=== PATIENT | male | born 1940 | race Caucasian/White ===

== ENCOUNTER 2017-02-19 15:35 | Emergency (ER) | payer MEDICARE ==
[2017-02-19] MEDS ORDERED: NACL 0.9% 1000 ML 1,000 ML IV ONE (16:05)
[2017-02-19] MEDS ORDERED: MORPHINE IV ONE (16:48)
[2017-02-19] MEDS ORDERED: ZOFRAN IV ONE (16:48)
--- NOTE | 2017-02-19 16:52 | Emergency Department Report ---
HPI - General Chief Complaint: Urogenital-Male Time Seen by Provider: 02/19/17 16:36 - HPI HPI: Room 1 The patient is a 77-year-old male presenting with a chief complaint of suprapubic and penile pain/urinary retention. Patient states this morning he noticed hematuria and difficulty urinating. Patient complains of pain in the suprapubic region penis. Patient denies nausea vomiting or fever. The patient had a BM this morning and noticed blood on the tissue after wiping. Patient denies rectal pain. In the ED patient had a Stein catheter placed and states he feels better but still has pain at the penis and gives a score of 6/10 Location: Genitourinary system Duration: One day Quality: Pain Severity: 6/10 Modifying factors: [see above] Context: [see above] Mode of transportation: Unknown ED Past Medical Hx - Past Medical History Hx Hypertension: Yes Hx CVA: Yes Hx of Cancer: Yes (history of prostate CA status post xrt) Additional medical history: stroke- 2000. BPH - Surgical History Past Surgical History?: No - Family History Family history: no significant - Social History Smoking Status: Never Smoker Substance Use Type: None - Medications Home Medications: Home Medications Medication Instructions Recorded Confirmed Last Taken Type Aspirin [Aspirin TAB] 325 mg PO ONCE 05/25/13 05/25/13 Unknown History Ciprofloxacin 0.2%(Nf) 500 mg PO BID 05/25/13 05/25/13 Unknown History [Ciprofloxacin OTIC] Clopidogrel [Plavix] 75 mg PO QDAY 05/25/13 05/25/13 Unknown History Ibuprofen [Advil] 200 mg PO 05/25/13 05/25/13 Unknown History Lisinopril [Zestril] 10 mg PO QDAY 05/25/13 05/25/13 Unknown History [place]-3 Acid Ethyl Esters [Lovaza] 1 gm PO 05/25/13 05/25/13 Unknown History Simvastatin [Zocor] 80 mg PO QDAY 05/25/13 05/25/13 Unknown History Tramadol HCl/Acetaminophen 37.5 - 325 each PO BID PRN 05/25/13 05/25/13 Unknown History [Ultracet] HYDROcodone/APAP 5-325 [[place] 1 - 2 each PO Q6HR PRN #14 tablet 02/19/17 Unknown Rx 5/325] ED Review of Systems ROS: Stated complaint: UTI/UNABLE TO URINATE Other details as noted in HPI Comment: All other systems reviewed and negative Constitutional: denies: chills, fever Eyes: denies: eye pain, eye discharge, vision change ENT: denies: ear pain, throat pain Respiratory: denies: cough, shortness of breath, wheezing Cardiovascular: denies: chest pain, palpitations Endocrine: no symptoms reported Gastrointestinal: abdominal pain. denies: nausea, vomiting Genitourinary: hematuria Musculoskeletal: denies: back pain, joint swelling, arthralgia Skin: denies: rash, lesions Neurological: denies: headache, weakness, paresthesias Psychiatric: denies: anxiety, depression Hematological/Lymphatic: denies: easy bleeding, easy bruising Physical Exam - Physical Exam Vital Signs: Vital Signs 02/19/17 02/19/17 15:48 16:00 Temperature 98.3 F Pulse Rate 94 H Respiratory 20 16 Rate Blood Pressure 132/80 O2 Sat by Pulse 95 96 Oximetry Physical Exam: GENERAL: The patient is well-developed well-nourished male lying on stretcher not appearing to be in acute distress. [] HEENT: Normocephalic. Atraumatic. Extraocular motions are intact. Patient has moist mucous membranes. NECK: Supple. Trachea midline CHEST/LUNGS: Clear to auscultation. There is no respiratory distress noted. HEART/CARDIOVASCULAR: Regular. There is no tachycardia. There is no gallop rub or murmur. ABDOMEN: Abdomen is soft, nontender. Patient has normal bowel sounds. There is no abdominal distention. SKIN: There is no rash. There is no edema. There is no diaphoresis. NEURO: The patient is awake, alert, and oriented. The patient is cooperative. The patient has normal speech MUSCULOSKELETAL: There is no evidence of acute injury. RECTAL: ED Course Vital Signs 02/19/17 02/19/17 15:48 16:00 Temperature 98.3 F Pulse Rate 94 H Respiratory 20 16 Rate Blood Pressure 132/80 O2 Sat by Pulse 95 96 Oximetry - Reevaluation(s) Reevaluation #1: 02/19/17 18:23 Patient continues to rest comfortably. Urine is clearing in the Stein catheter. ED Medical Decision Making - Lab Data Result diagrams: 02/19/17 16:31 02/19/17 16:31 Laboratory Tests 02/19/17 02/19/17 02/19/17 16:11 16:31 16:31 WBC 11.6 H RBC 4.59 Hgb 14.5 Hct 42.1 MCV 92 MCH 32 MCHC 34 RDW 13.0 L Plt Count 280 Seg Neutrophils % Manager Payment PT 13.9 INR 1.02 APTT 29.6 Sodium Potassium Chloride Carbon Dioxide Anion Gap BUN Creatinine Estimated GFR BUN/Creatinine Ratio Glucose Calcium Total Bilirubin AST ALT Alkaline Phosphatase Total Protein Albumin Albumin/Globulin Ratio Lipase Urine Color Red Urine Turbidity Cloudy Urine pH 6.0 Ur Specific [place] 1.024 Urine Protein 100 mg/dl Urine Glucose (UA) 50 Urine Ketones 20 Urine Blood Lg Urine Nitrite Neg Urine Bilirubin Neg Urine Urobilinogen < 2.0 Ur Leukocyte Esterase Neg Urine WBC (Auto) < 1.0 Urine RBC (Auto) > 182.0 Blood Type Antibody Screen [place] Antibody Screen 02/19/17 02/19/17 16:31 16:32 WBC RBC Hgb Hct MCV MCH MCHC RDW Plt Count Seg Neutrophils % PT INR APTT Sodium 135 L Potassium 4.4 Chloride 97.5 L Carbon Dioxide 21 L Anion Gap 21 BUN 15 Creatinine 0.8 Estimated GFR > 60 BUN/Creatinine Ratio 18.75 Glucose 130 H Calcium 8.7 Total Bilirubin 0.40 AST 30 ALT 22 Alkaline Phosphatase 52 Total Protein 6.8 Albumin 4.1 Albumin/Globulin Ratio 1.5 Lipase 30 Urine Color Urine Turbidity Urine pH Ur Specific [place] Urine Protein Urine Glucose (UA) Urine Ketones Urine Blood Urine Nitrite Urine Bilirubin Urine Urobilinogen Ur Leukocyte Esterase Urine WBC (Auto) Urine RBC (Auto) Blood Type B POSITIVE Antibody Screen TNR [place] Antibody Screen Negative - EKG Data -: EKG Interpreted by Fl EKG shows normal: sinus rhythm Rate: normal - EKG Data When compared to previous EKG there are: previous EKG unavailable Interpretation: other (no ischemic changes) - Radiology Data Radiology results: report reviewed (CT abdomen and pelvis), image reviewed (CT abdomen and pelvis) CT abdomen and pelvis (read by radiologist)-there is hyperdensity in the inferior aspect of the bladder. This may represent blood clot given the history provided. Underlying neoplastic process is not excluded. This can be further assess with cystoscopy. There is a hypodense focus in the right lobe of liver which is too small to definitely characterize. - Differential Diagnosis UTI, urinary retention, bladder mass, prostate CA Critical care attestation.: If time is entered above; I have spent that time in minutes in the direct care of this critically ill patient, excluding procedure time. ED Disposition Clinical Impression: Hematuria, Urinary retention Disposition: TO HOME OR SELFCARE Is pt being admited?: No Does the pt Need Aspirin: No Condition: Stable Instructions: Acute Hematuria (ED), Urinary Retention in Men (ED) Additional Instructions: Continue to take your antibiotics. Return to the emergency department should your abdominal pain return or your Stein catheter ceases draining urine. Return to the emergency department immediately should you develop worsening symptoms, fever, inability to tolerate food or liquid or any other concerns. Prescriptions: HYDROcodone/APAP 5-325 [[place] 5/325] 1 - 2 each PO Q6HR PRN #14 tablet PRN Reason: Pain Referrals: JANY ORTEGA MD [Referring] - SAMMI (Please follow up with your urologist as soon as possible) Time of Disposition: 18:26
[2017-02-19 16:55] LABS: Bilirubin,Urine NEG (Negative); Blood,Urine LG (Negative); Ketones,Urine 20 mg/dL (Negative); Leukocyte Esterase,Urine NEG (Negative); Nitrite,Urine NEG (Negative); Urobilinogen,Urine < 2.0 mg/dL (<2.0)
[2017-02-19 16:56] LABS: Hematocrit 42.1 % (35.5-45.6); Hemoglobin 14.5 gm/dl (11.8-15.2); Mean Corpuscular HGB Conc 34 % (32-34); Mean Corpuscular Hemoglobin 32 pg (28-32); Mean Corpuscular Volume 92 fl (84-94); Platelet Count 280 K/mm3 (140-440); Red Blood Count 4.59 M/mm3 (3.65-5.03); White Blood Count 11.6 K/mm3 (4.5-11.0)
[2017-02-19 16:56] LABS: RBC,Urine > 182.0 /HPF (0.0-6.0)
[2017-02-19 16:58] LABS: WBC,Urine < 1.0 /HPF (0.0-6.0)
[2017-02-19 17:16] LABS: Alanine Aminotransferase 22 units/L (7-56); Albumin 4.1 g/dL (3.9-5); Albumin/Globulin Ratio 1.5 %; Alkaline Phosphatase 52 units/L (35-129); Anion Gap 21 mmol/L; BUN/Creatinine Ratio 18.75; Blood Urea Nitrogen 15 mg/dL (9-20); Calcium 8.7 mg/dL (8.4-10.2); Carbon Dioxide 21 mmol/L (22-30); Chloride 97.5 mmol/L (98-107); Glucose 130 mg/dL (75-100); Lipase 30 units/L (13-60); Potassium 4.4 mmol/L (3.6-5.0); Sodium 135 mmol/L (137-145); Total Protein 6.8 g/dL (6.3-8.2)
[2017-02-19 17:21] LABS: INR 1.02 (0.87-1.13)
[2017-02-19 17:22] LABS: Partial Thromboplastin Time 29.6 Sec. (24.2-36.6)
--- NOTE | 2017-02-19 17:46 | Cat Scan Report ---
FINAL REPORT EXAM: CT ABDOMEN PELVIS WO CON HISTORY: urinary retention, amos hematuria TECHNIQUE: Serial axial images through the abdomen and pelvis with coronal and sagittal reconstruction. PRIORS: None. FINDINGS: There is atelectasis in the dependent portion of the lung bases. No pleural effusion is seen. There are calcified lymph nodes in the right hilar region. There is a hypodense focus in the right lobe of the liver which is too small to definitely characterize. Gallbladder appears normal. Pancreas appears normal. Spleen appears normal. Adrenal glands appear normal. Kidneys appear normal. Atherosclerotic changes are noted in the aorta. No aneurysmal dilatation is seen. The bladder is decompressed by Stein catheter. There is hyperdensity in the inferior aspect of the bladder. Sequelae from brachytherapy are seen in the prostate gland. No free fluid. No gross bowel abnormality is identified. There are degenerative changes in the spine. IMPRESSION: 1. There is hyperdensity in inferior aspect of the bladder. This may represent blood clot given the history provided. Underlying neoplastic process is not excluded. This can be further assessed with cystoscopy. 2. There is a hypodense focus in the right lobe of the liver which is too small to definitely characterize.
[2017-02-19 18:48] LABS: Basophils % (Manual) 0 % (0.0-1.8); Blastocytes % (Manual) 0 %; Eosinophils % (Manual) 0 % (0.0-4.3)
[2017-02-19 18:49] LABS: Diff Status Complete; Platelet Estimate Consistent w Auto; RBC Morphology Normal
[2017-02-19 20:05] VITALS: BP 107/67
== END 2017-02-19 19:50 | disposition home or self-care (01) ==
LOC: ED 15:35
DX: R33.8 Other retention of urine (principal); R31.9 Hematuria, unspecified; Z86.73 Personal history of transient ischemic attack (TIA), and cerebral infarction without residual deficits; I10 Essential (primary) hypertension; C61 Malignant neoplasm of prostate
CPT/HCPCS: 36415; 51702; 74176; 80053; 81001; 82271; 83690; 85007; 85025; 85610; 85730; 86850; 86900; 86901; 93005; 93010; 96361; 96374; 96375; 99284; J2270; J2405; J7030

== ENCOUNTER 2017-03-06 14:30 | Emergency (ER) | payer MEDICARE ==
[2017-03-06 15:40] LABS: Bilirubin,Urine NEG (Negative); Blood,Urine LG (Negative); Ketones,Urine NEG (Negative); Leukocyte Esterase,Urine NEG (Negative); Nitrite,Urine NEG (Negative); Urobilinogen,Urine < 2.0 mg/dL (<2.0)
[2017-03-06 15:41] LABS: RBC,Urine > 182.0 /HPF (0.0-6.0)
--- NOTE | 2017-03-06 15:42 | Cat Scan Report ---
CT scan of abdomen and pelvis without IV contrast: History: Lower abdominal pain. Findings: Normal lung bases. No pleural pericardial effusion. Normal liver gallbladder spleen and pancreas. Normal adrenals kidney parenchyma. The urinary bladder with catheterization. There is ill-defined areas of increased attenuation within the bladder which may be blood clots or tumor. Surgical clips at prostate. No free intraperitoneal fluid. Gaseous colon with large volume stool in colon. No bowel distention or wall thickening. 2 cm calcified lesion identified in the retroperitoneum right pelvic inlet without interval change. Impression: Blood clots or tumor in the bladder. Additional findings as detailed above
[2017-03-06 15:47] LABS: Hematocrit 36.6 % (35.5-45.6); Mean Corpuscular HGB Conc 33 % (32-34); Mean Corpuscular Hemoglobin 31 pg (28-32); Mean Corpuscular Volume 93 fl (84-94); Platelet Count 407 K/mm3 (140-440); Red Blood Count 3.92 M/mm3 (3.65-5.03); Red Cell Distribution Width 13.3 % (13.2-15.2); White Blood Count 9.7 K/mm3 (4.5-11.0)
[2017-03-06 15:58] LABS: Anion Gap 17 mmol/L; Blood Urea Nitrogen 11 mg/dL (9-20); Calcium 8.5 mg/dL (8.4-10.2); Carbon Dioxide 26 mmol/L (22-30); Chloride 100.7 mmol/L (98-107); Glucose 145 mg/dL (75-100); Potassium 4.1 mmol/L (3.6-5.0); Sodium 140 mmol/L (137-145)
--- NOTE | 2017-03-06 17:09 | Emergency Department Report ---
ED General Adult HPI - General Chief complaint: Urogenital-Male Stated complaint: BLADDER ISSUES Time Seen by Provider: 03/06/17 15:17 Source: family, EMS (ems notes not available at time of chart dictation), RN notes reviewed, old records reviewed Mode of arrival: Stretcher Limitations: Language Barrier - History of Present Illness Initial comments: This is a 77-year-old male. He is previously unknown to me. He presents to the ER with urinary retention. As per his daughter, the patient followed up with his outpatient urologist, Dr. Murrieta ([facility] [place] [address] Toll-free: [phone]) And she reports that she was instructed to discontinue the patient's Stein catheter today. The patient's daughter indicates that she discontinue the patient's Stein catheter today, and that he then began to have urinary retention. The patient started declines a director account management, and requests translate for the patient. At my verbal instruction, laboratory studies, noncontrast CT scan of the abdomen and pelvis, and Stein catheter replaced. Laboratory studies were essentially unremarkable, urinalysis suggested possible urinary tract infection, and a noncontrast CT scan demonstrated blood or clots or tumor in the bladder. The patient's daughter indicated the patient's pain was resolved after placement of a Steni catheter. I also discussed the case with the covering urologist for the patient's primary urologist, Dr. Mercado, and he indicated the patient should be discharged with a leg bag, and the patient should contact the office to arrange follow-up. This was relayed to the daughter. She verbalized understanding. -: Gradual Location: abdomen Consistency: now resolved Improves with: other (placement of a Stein catheter) Worsens with: other (removal of Stein catheter) Associated Symptoms: denies: chest pain, cough, diaphoresis, fever/chills, headaches, loss of appetite, malaise, nausea/vomiting, shortness of breath, syncope, weakness - Related Data Home Medications Medication Instructions Recorded Confirmed Last Taken Clopidogrel [Plavix] 75 mg PO QDAY 05/25/13 02/19/17 Unknown Lisinopril [Zestril] 10 mg PO QDAY 05/25/13 02/19/17 Unknown Tramadol HCl/Acetaminophen 37.5 - 325 each PO Q6H PRN 05/25/13 02/19/17 Unknown [Ultracet] AtorvaSTATin [Lipitor] 40 mg PO QHS 02/19/17 02/19/17 Unknown Ciprofloxacin HCl [Ciprofloxacin 500 mg PO Q12H 02/19/17 02/19/17 Unknown TAB] [place]-3 Acid Ethyl Esters [Lovaza] 4 cap PO QDAY 02/19/17 02/19/17 Unknown Phenazopyridine [Pyridium] 200 mg PO TID 02/19/17 02/19/17 Unknown Triamcinolone 0.1% 1 gram TRANSDERMA BID 02/19/17 02/19/17 Unknown Previous Rx's Medication Instructions Recorded Last Taken Type HYDROcodone/APAP 5-325 [[place] 1 - 2 each PO Q6HR PRN #14 tablet 02/19/17 Unknown Rx 5/325] Nitrofurantoin Andrews/M-Cryst 100 mg PO Q12HR #14 capsule 03/06/17 Unknown Rx [Macrobid CAP] Allergies Allergy/AdvReac Type Severity Reaction Status Date / Time No Known Allergies Allergy Unverified 05/25/13 10:06 ED Review of Systems ROS: Stated complaint: BLADDER ISSUES Other details as noted in HPI Constitutional: denies: fever Eyes: denies: vision change ENT: denies: epistaxis Respiratory: denies: cough Cardiovascular: denies: chest pain Genitourinary: as per HPI. denies: testicular pain Musculoskeletal: denies: back pain Skin: denies: lesions Neurological: denies: weakness Psychiatric: as per HPI ED Past Medical Hx - Past Medical History Previous Medical History?: Yes Hx Hypertension: Yes Hx CVA: Yes Additional medical history: stroke- 2000. BPH - Social History Smoking Status: Former Smoker Substance Use Type: None - Medications Home Medications: Home Medications Medication Instructions Recorded Confirmed Last Taken Type Clopidogrel [Plavix] 75 mg PO QDAY 05/25/13 02/19/17 Unknown History Lisinopril [Zestril] 10 mg PO QDAY 05/25/13 02/19/17 Unknown History Tramadol HCl/Acetaminophen 37.5 - 325 each PO Q6H PRN 05/25/13 02/19/17 Unknown History [Ultracet] AtorvaSTATin [Lipitor] 40 mg PO QHS 02/19/17 02/19/17 Unknown History Ciprofloxacin HCl [Ciprofloxacin 500 mg PO Q12H 02/19/17 02/19/17 Unknown History TAB] HYDROcodone/APAP 5-325 [[place] 1 - 2 each PO Q6HR PRN #14 tablet 02/19/17 Unknown Rx 5/325] [place]-3 Acid Ethyl Esters [Lovaza] 4 cap PO QDAY 02/19/17 02/19/17 Unknown History Phenazopyridine [Pyridium] 200 mg PO TID 02/19/17 02/19/17 Unknown History Triamcinolone 0.1% 1 gram TRANSDERMA BID 02/19/17 02/19/17 Unknown History Nitrofurantoin Andrews/M-Cryst 100 mg PO Q12HR #14 capsule 03/06/17 Unknown Rx [Macrobid CAP] ED Physical Exam - General Limitations: Language Barrier General appearance: alert, in no apparent distress - Head Head exam: Present: atraumatic, normocephalic - Eye Eye exam: Present: normal appearance - ENT ENT exam: Present: normal orophraynx, mucous membranes moist - Neck Neck exam: Present: normal inspection, full ROM. Absent: tenderness, meningismus - Respiratory Respiratory exam: Present: normal lung sounds bilaterally. Absent: respiratory distress, wheezes, rales, rhonchi, stridor, chest wall tenderness, accessory muscle use, decreased breath sounds, prolonged expiratory - Cardiovascular Cardiovascular Exam: Present: regular rate, normal rhythm, normal heart sounds. Absent: bradycardia, tachycardia, irregular rhythm, systolic murmur, diastolic murmur, rubs, gallop - GI/Abdominal GI/Abdominal exam: Present: soft, normal bowel sounds. Absent: distended, tenderness, guarding, rebound, rigid, pulsatile mass - Rectal Rectal exam: Present: deferred - exam: Present: normal inspection External exam: Present: normal external exam, other (there is a Stein catheter in place draining clear/bloody urine.) - Extremities Exam Extremities exam: Present: pedal edema - Back Exam Back exam: Present: normal inspection, full ROM. Absent: tenderness, CVA tenderness (R), CVA tenderness (L), muscle spasm, paraspinal tenderness, vertebral tenderness - Neurological Exam Neurological exam: Present: alert, other (Extraocular movements intact. Tongue midline. No facial droop. Facial sensation intact to light touch in the V1, V2 , V3 distribution bilaterally. 5 and 5 strength in 4 extremities.. Sensation is intact to light touch in 4 extremities.) - Psychiatric Psychiatric exam: Present: normal affect, normal mood - Skin Skin exam: Present: warm, dry, intact, normal color. Absent: rash ED Course Vital Signs 03/06/17 03/06/17 03/06/17 14:41 14:47 15:00 Temperature 99.3 F Pulse Rate 95 H Respiratory 20 Rate Blood Pressure 128/71 141/71 128/71 Blood Pressure [Left] O2 Sat by Pulse 96 96 96 Oximetry 03/06/17 03/06/17 03/06/17 15:31 15:51 16:00 Temperature Pulse Rate Respiratory Rate Blood Pressure 118/63 118/63 117/59 Blood Pressure [Left] O2 Sat by Pulse 97 96 96 Oximetry 03/06/17 03/06/17 03/06/17 16:01 16:11 16:21 Temperature Pulse Rate Respiratory 18 Rate Blood Pressure 117/59 117/59 Blood Pressure [Left] O2 Sat by Pulse 97 97 97 Oximetry 03/06/17 03/06/17 03/06/17 16:31 16:41 16:51 Temperature Pulse Rate Respiratory Rate Blood Pressure 118/63 118/63 118/63 Blood Pressure [Left] O2 Sat by Pulse 95 94 95 Oximetry 03/06/17 03/06/17 03/06/17 17:00 17:11 17:21 Temperature Pulse Rate Respiratory Rate Blood Pressure 137/62 137/62 137/62 Blood Pressure [Left] O2 Sat by Pulse 96 96 98 Oximetry 03/06/17 03/06/17 03/06/17 17:31 17:48 18:37 Temperature Pulse Rate 90 Respiratory 18 18 Rate Blood Pressure 117/59 Blood Pressure 130/69 [Left] O2 Sat by Pulse 98 98 Oximetry ED Medical Decision Making - Lab Data Result diagrams: 03/06/17 15:26 03/06/17 15:26 Vital Signs 03/06/17 03/06/17 03/06/17 14:41 14:47 15:00 Temperature 99.3 F Pulse Rate 95 H Respiratory 20 Rate Blood Pressure 128/71 141/71 128/71 Blood Pressure [Left] O2 Sat by Pulse 96 96 96 Oximetry 03/06/17 03/06/17 03/06/17 15:31 15:51 16:00 Temperature Pulse Rate Respiratory Rate Blood Pressure 118/63 118/63 117/59 Blood Pressure [Left] O2 Sat by Pulse 97 96 96 Oximetry 03/06/17 03/06/17 03/06/17 16:01 16:11 16:21 Temperature Pulse Rate Respiratory 18 Rate Blood Pressure 117/59 117/59 Blood Pressure [Left] O2 Sat by Pulse 97 97 97 Oximetry 03/06/17 03/06/17 03/06/17 16:31 16:41 16:51 Temperature Pulse Rate Respiratory Rate Blood Pressure 118/63 118/63 118/63 Blood Pressure [Left] O2 Sat by Pulse 95 94 95 Oximetry 03/06/17 03/06/17 03/06/17 17:00 17:11 17:21 Temperature Pulse Rate Respiratory Rate Blood Pressure 137/62 137/62 137/62 Blood Pressure [Left] O2 Sat by Pulse 96 96 98 Oximetry 03/06/17 03/06/17 03/06/17 17:31 17:48 18:37 Temperature Pulse Rate 90 Respiratory 18 18 Rate Blood Pressure 117/59 Blood Pressure 130/69 [Left] O2 Sat by Pulse 98 98 Oximetry Lab Results 03/06/17 03/06/17 03/06/17 Range/Units 15:10 15:26 15:26 WBC 9.7 (4.5-11.0) K/mm3 RBC 3.92 (3.65-5.03) M/mm3 Hgb 12.0 (11.8-15.2) gm/dl Hct 36.6 (35.5-45.6) % MCV 93 (84-94) fl MCH 31 (28-32) pg MCHC 33 (32-34) % RDW 13.3 (13.2-15.2) % Plt Count 407 (140-440) K/mm3 Sodium 140 (137-145) mmol/L Potassium 4.1 (3.6-5.0) mmol/L Chloride 100.7 (98-107) mmol/L Carbon Dioxide 26 (22-30) mmol/L Anion Gap 17 mmol/L BUN 11 (9-20) mg/dL Creatinine 1.0 (0.8-1.5) mg/dL Estimated GFR > 60 ml/min BUN/Creatinine Ratio 11.00 % Glucose 145 H (75-100) mg/dL Calcium 8.5 (8.4-10.2) mg/dL Urine Color Red (Yellow) Urine Turbidity Cloudy (Clear) Urine pH 6.0 (5.0-7.0) Ur Specific [place] 1.006 (1.003-1.030) Urine Protein 100 mg/dl (Negative) mg/dL Urine Glucose (UA) 50 (Negative) mg/dL Urine Ketones Neg (Negative) mg/dL Urine Blood Lg (Negative) Urine Nitrite Neg (Negative) Urine Bilirubin Neg (Negative) Urine Urobilinogen < 2.0 (<2.0) mg/dL Ur Leukocyte Esterase Neg (Negative) Urine WBC (Auto) 126.0 H (0.0-6.0) /HPF Urine RBC (Auto) > 182.0 (0.0-6.0) /HPF - Radiology Data Radiology results: report reviewed, image reviewed - Medical Decision Making Differential diagnosis: Urinary retention, cancer, tumor, malignancy, urinary tract infection CT scan findings are reviewed with daughter, she understands the importance of following up as an outpatient for the possibility of cancer/tumor/malignancy. Critical care attestation.: If time is entered above; I have spent that time in minutes in the direct care of this critically ill patient, excluding procedure time. ED Disposition Clinical Impression: Urinary retention Disposition: DC-01 TO HOME OR SELFCARE Is pt being admited?: No Does the pt Need Aspirin: No Condition: Stable Instructions: Urinary Retention in Men (ED), Urinary Leg Bag (GEN) Additional Instructions: Continue current outpatient medications. Cultures were sent today, results will be available in the next 3-5 days. Please have a primary care doctor or urology specialist contact the medical records department to obtain culture results. Return to the ER right away with new pain, worsened pain, migration of pain, fevers, chills, confusion, intractable nausea or vomiting, inability to tolerate liquid feeds. The leg bag stay in place until cleared to discharge by your urology specialist Contact your urologist first thing in the morning to arrange outpatient follow- up within the next 3-5 days. [facility] [place] [address] [facility] [address] [place] [address] Toll-free: [phone] scans suggested cancer/tumor/malignancy in the bladder. Therefore, it is very important to follow-up with your outpatient urology specialist as directed. Prescriptions: Nitrofurantoin [place]/M-Cryst [Macrobid CAP] 100 mg PO Q12HR #14 capsule Referrals: PRIMARY CARE, [Primary Care Provider] - 3-5 Days JANY MURRIETA MD [Referring] - 3-5 Days
[2017-03-06] MEDS ORDERED: TYLENOL PO ONE (17:45)
[2017-03-06 18:38] VITALS: BP 130/69
== END 2017-03-06 19:00 | disposition home or self-care (01) ==
LOC: ED 14:30
DX: R33.9 Retention of urine, unspecified (principal); I10 Essential (primary) hypertension; Z86.73 Personal history of transient ischemic attack (TIA), and cerebral infarction without residual deficits; Z87.891 Personal history of nicotine dependence; N40.0 Benign prostatic hyperplasia without lower urinary tract symptoms
CPT/HCPCS: 36415; 51702; 74176; 80048; 81001; 85027; 87086

== ENCOUNTER 2019-07-20 12:15 | Emergency (ER) | payer MEDICARE ==
--- NOTE | 2019-07-20 12:25 | Event Note ---
ED Screening Note ED Screening Note: two days ago fell while getting out of the bed +ZAYAS periorbital ecchymosis no LOC pt is on plavix This initial assessment/diagnostic orders/clinical plan/treatment(s) is/are subject to change based on patients health status, clinical progression and re- assessment by fellow clinical providers in the ED. Further treatment and workup at subsequent clinical providers discretion. Patient/guardian urged not to elope from the ED as their condition may be serious if not clinically assessed and managed. Initial orders include: CT head, CT facial bones, CT cervical
--- NOTE | 2019-07-20 13:32 | Cat Scan Report ---
CT HEAD WITHOUT CONTRAST INDICATION / CLINICAL INFORMATION: Trauma. Patient fell sustaining head and facial injury. Bilateral periorbital ecchymosis. TECHNIQUE: All CT scans at this location are performed using CT dose reduction for ALARA by means of automated e xposure control. COMPARISON: None available. FINDINGS: HEMORRHAGE: No evidence of intracranial hemorrhage or extra-axial fluid collection. EXTRA-AXIAL SPACES: Focal dilatation of cortical sulci and left sylvian fissure is noted secondary to involutional change related to remote left MCA infarction. Elsewhere the cortical sulci and sylvian fissures are enlarged reflecting a degree of parenchymal volume loss which is within normal limits fo r the patient's age. Basilar cisterns have an unremarkable appearance. VENTRICULAR SYSTEM: There is ex vacuo dilatation of the left lateral ventricle secondary to remote, l arge left MCA infarction. Otherwise, the third and lateral ventricles are enlarged reflecting resonan ce of age related parenchymal volume loss. CEREBRAL PARENCHYMA: Periventricular and deep white matter lucency is observed. This is probably seco ndary to microvascular ischemic change. There is no indication of recent infarction. A large area of encephalomalacia is present involving portions of the left frontal operculum, left parietal operculum and left insula and subinsular regions secondary to remote left MCA infarction. MIDLINE SHIFT OR HERNIATION: There is no mass effect. CEREBELLUM / BRAINSTEM: Brainstem and cerebellum have an unremarkable appearance. INTRACRANIAL VESSELS:Calcified atherosclerotic plaque is present along the course of the cavernous se gments of both internal carotid arteries. Similar findings are seen at the distal vertebral arteries. ORBITS: visualized portions of the orbits have an unremarkable appearance. SOFT TISSUES of HEAD: No significant abnormality. CALVARIUM: Evaluation of bone windows reveals no abnormalities. PARANASAL SINUSES / MASTOID AIR CELLS: Paranasal sinuses are free from inflammatory mucosal disease. Mastoid air cells are normally pneumatized. IMPRESSION: 1. Remote left MCA infarction as described in detail above. 2. No acute intracranial abnormality. Signer Name: Adonis Miles MD Signed: 07/20/2019 1:28 PM Workstation Name: [id number]
--- NOTE | 2019-07-20 13:37 | Cat Scan Report ---
CT MAXILLOFACIAL WITHOUT CONTRAST INDICATION / CLINICAL INFORMATION: Trauma. Patient fell sustaining head and facial injuries. Bilateral preseptal orbital ecchymoses. TECHNIQUE: All CT scans at this location are performed using CT dose reduction for ALARA by means of automated e xposure control. COMPARISON: None available. FINDINGS: FACIAL BONES: No fracture or other significant abnormality. PARANASAL SINUSES: No significant abnormality. NASAL CAVITY: No abnormality ORBITS: No significant abnormality. TEMPORAL BONES: Mild thickening of the tympanic membranes versus cerumen impaction adjacent to the ty mpanic membranes is incidentally noted. Correlation with otoscopic evaluation is suggested. Mastoid a ir cells and middle ear cavities appear to be free from inflammatory disease. VISUALIZED INTRACRANIAL STRUCTURES: No significant abnormality. IMPRESSION: 1. No indication of fracture or traumatic subluxation. Signer Name: Adonis Miles MD Signed: 07/20/2019 1:33 PM Workstation Name: [id number]
--- NOTE | 2019-07-20 13:41 | Cat Scan Report ---
CT CERVICAL SPINE WITHOUT CONTRAST INDICATION / CLINICAL INFORMATION: Trauma. Patient fell sustaining head and neck injury. Neck pain. TECHNIQUE: Axial CT images were obtained through the cervical spine. Sagittal and coronal reformatted images wer e produced. All CT scans at this location are performed using CT dose reduction for ALARA by means of automated exposure control. COMPARISON: None available. FINDINGS: ALIGNMENT: Loss of the normal cervical lordosis is noted. No additional abnormalities of alignment ar e identified. There is no indication of traumatic subluxation. VERTEBRAE: No indication of fracture. DISC SPACES: Loss of disc height is noted at the C5-6 and C6-7 levels. INDIVIDUAL LEVEL ANALYSIS: C2-3: Right worse than left facet arthropathy. No additional abnormality. C3-4: No abnormality. C4-5: Anterior osteophyte formation is noted. Mild posterior disc osteophyte complex flattens the the ramiro sac slightly. Central spinal canal and neuroforamina are adequately maintained. C5-6: Loss of disc height is noted. Anterior and posterior osteophyte formation are observed. Right-s ided uncovertebral arthropathy is present. This results in moderate right-sided C6 nerve root neural foraminal stenosis. Central spinal canal and left C6 nerve root neuroforamina are adequately maintain ed. C6-7: Loss of disc height and anterior osteophyte formation are demonstrated. Right worse than left u ncovertebral arthritic changes are observed. Central spinal canal and neuroforamina are adequately ma intained. C7-T1: No abnormality. CRANIOCERVICAL JUNCTION:No significant abnormality. SPINAL CANAL: No indication of central canal stenosis. PARASPINAL SOFT TISSUES: No significant abnormality. ADDITIONAL FINDINGS: There is moderate ossification of the nuchal ligament dorsal to the C4, C5 and C 6 vertebrae. LUNG APICES: No significant abnormality of visualized lungs. IMPRESSION: 1. No indication of fracture or traumatic subluxation. 2. Widespread cervical spondylosis as described level by level above. Signer Name: Adonis Miles MD Signed: 07/20/2019 1:37 PM Workstation Name: [id number]
--- NOTE | 2019-07-20 14:42 | Emergency Department Report ---
ED Head Trauma HPI - General Chief complaint: Fall Stated complaint: HEAD INJURY Time Seen by Provider: 07/20/19 12:24 Source: patient, family Mode of arrival: Ambulatory Limitations: Language Barrier - History of Present Illness Initial comments: Patient is a 79-year-old [place] gentleman who is presenting with a head injury. The patient called his daughter and stated that she would have days ago he fell getting out of bed. He denied loss of consciousness. Patient states that he has swelling to the right forehead neck has bilateral ecchymosis around his eyes. He's had a consistent headache is myofascial pain. Patient denies any nausea vomiting or difficulty walking at this time greater than his baseline. Patient does have some baseline instability while walking. Patient does not have any new focal neurological deficits according to him.. - Related Data Home Medications Medication Instructions Recorded Confirmed Last Taken Clopidogrel [Plavix] 75 mg PO QDAY 05/25/13 02/19/17 Unknown Lisinopril [Zestril] 10 mg PO QDAY 05/25/13 02/19/17 Unknown AtorvaSTATin [Lipitor] 40 mg PO QHS 02/19/17 02/19/17 Unknown Ciprofloxacin HCl [Ciprofloxacin 500 mg PO Q12H 02/19/17 02/19/17 Unknown TAB] [place]-3 Acid Ethyl Esters [Lovaza] 4 cap PO QDAY 02/19/17 02/19/17 Unknown Phenazopyridine [Pyridium] 200 mg PO TID 02/19/17 02/19/17 Unknown Triamcinolone 0.1% 1 gram TRANSDERMA BID 02/19/17 02/19/17 Unknown Previous Rx's Medication Instructions Recorded Last Taken Type HYDROcodone/APAP 5-325 [[place] 1 - 2 each PO Q6HR PRN #14 tablet 02/19/17 Unknown Rx 5/325] Nitrofurantoin [place]/M-Cryst 100 mg PO Q12HR #14 capsule 03/06/17 Unknown Rx [Macrobid CAP] Tramadol HCl/Acetaminophen 37.5 - 325 each PO Q6H PRN #12 07/20/19 Unknown Rx [Ultracet] Allergies/Adverse reactions: Allergies Allergy/AdvReac Type Severity Reaction Status Date / Time No Known Allergies Allergy Unverified 05/25/13 10:06 ED Review of Systems ROS: Stated complaint: HEAD INJURY Other details as noted in HPI Comment: All other systems reviewed and negative Musculoskeletal: arthralgia (right shoulder which is chronic) ED Past Medical Hx - Past Medical History Previous Medical History?: Yes Hx Hypertension: Yes Hx CVA: Yes Hx of Cancer: Yes (prostate) Additional medical history: stroke- 2000. BPH - Surgical History Past Surgical History?: Yes Additional Surgical History: Prostate surgery - Social History Smoking Status: Never Smoker Substance Use Type: None - Medications Home Medications: Home Medications Medication Instructions Recorded Confirmed Last Taken Type Clopidogrel [Plavix] 75 mg PO QDAY 05/25/13 02/19/17 Unknown History Lisinopril [Zestril] 10 mg PO QDAY 05/25/13 02/19/17 Unknown History AtorvaSTATin [Lipitor] 40 mg PO QHS 02/19/17 02/19/17 Unknown History Ciprofloxacin HCl [Ciprofloxacin 500 mg PO Q12H 02/19/17 02/19/17 Unknown History TAB] HYDROcodone/APAP 5-325 [[place] 1 - 2 each PO Q6HR PRN #14 tablet 02/19/17 Unknown Rx 5/325] [place]-3 Acid Ethyl Esters [Lovaza] 4 cap PO QDAY 02/19/17 02/19/17 Unknown History Phenazopyridine [Pyridium] 200 mg PO TID 02/19/17 02/19/17 Unknown History Triamcinolone 0.1% 1 gram TRANSDERMA BID 02/19/17 02/19/17 Unknown History Nitrofurantoin [place]/M-Cryst 100 mg PO Q12HR #14 capsule 03/06/17 Unknown Rx [Macrobid CAP] Tramadol HCl/Acetaminophen 37.5 - 325 each PO Q6H PRN #12 07/20/19 Unknown Rx [Ultracet] ED Physical Exam - General Limitations: Language Barrier General appearance: alert, in no apparent distress - Head Head exam: Present: normocephalic, other. Absent: atraumatic - Expanded Head Exam Expanded Head exam: Present: contusion, racoon eyes 1 - Contusion present. 2 - Bilateral periorbital ecchymosis - Eye Eye exam: Present: normal appearance, PERRL, EOMI - ENT ENT exam: Present: mucous membranes moist - Neck Neck exam: Present: normal inspection - Respiratory Respiratory exam: Present: normal lung sounds bilaterally. Absent: respiratory distress, wheezes, rales, rhonchi - Cardiovascular Cardiovascular Exam: Present: regular rate, normal rhythm. Absent: systolic murmur, diastolic murmur, rubs, gallop - GI/Abdominal GI/Abdominal exam: Present: soft, normal bowel sounds. Absent: distended, tenderness - Rectal Rectal exam: Present: deferred - Extremities Exam Extremities exam: Present: normal inspection - Back Exam Back exam: Present: normal inspection - Neurological Exam Neurological exam: Present: alert, oriented X3 - Psychiatric Psychiatric exam: Present: normal affect, normal mood - Skin Skin exam: Present: warm, dry, intact, normal color. Absent: rash ED Course Vital Signs 07/20/19 07/20/19 12:24 14:10 Temperature 98.5 F Pulse Rate 96 H 81 Respiratory 18 16 Rate Blood Pressure 159/76 Blood Pressure 175/87 [Left] O2 Sat by Pulse 97 97 Oximetry - Radiology Data CT HEAD WITHOUT CONTRAST INDICATION / CLINICAL INFORMATION: Trauma. Patient fell sustaining head and facial injury. Bilateral periorbital ecchymosis. TECHNIQUE: All CT scans at this location are performed using CT dose reduction for ALARA by means of automated exposure control. COMPARISON: None available. FINDINGS: HEMORRHAGE: No evidence of intracranial hemorrhage or extra-axial fluid collection. EXTRA-AXIAL SPACES: Focal dilatation of cortical sulci and left sylvian fissure is noted secondary to involutional change related to remote left MCA infarction. Elsewhere the cortical sulci and sylvian fissures are enlarged reflecting a degree of parenchymal volume loss which is within normal limits for the patient's age. Basilar cisterns have an unremarkable appearance. VENTRICULAR SYSTEM: There is ex vacuo dilatation of the left lateral ventricle secondary to remote, large left MCA infarction. Otherwise, the third and lateral ventricles are enla rged reflecting resonance of age related parenchymal volume loss. CEREBRAL PARENCHYMA: Periventricular and deep white matter lucency is observed. This is probably secondary to microvascular ischemic change. There is no indication of recent infarction. A large area of encephalomalacia is present involving portions of the left frontal operculum, left parietal operculum and left insula and subinsular regions secondary to remote left MCA infarction. MIDLINE SHIFT OR HERNIATION: There is no mass effect. CEREBELLUM / BRAINSTEM: Brainstem and cerebellum have an unremarkable appearance. INTRACRANIAL VESSELS:Calcified atherosclerotic plaque is present along the course of the cavernous segments of both internal carotid arteries. Similar findings are seen at the distal vertebral arteries. ORBITS: visualized portions of the orbits have an unremarkable appearance. SOFT TISSUES of HEAD: No significant abnormality. CALVARIUM: Evaluation of bone windows reveals no abnormalities. PARANASAL SINUSES / MASTOID AIR CELLS: Paranasal sinuses are free from inflammatory mucosal disease. Mastoid air cells are normally pneumatized. IMPRESSION: 1. Remote left MCA infarction as described in detail above. 2. No acute intracranial abnormality. Signer Name: Adonis Miles MD Signed: 07/20/2019 1:28 PM Workstation Name: [id number] CT MAXILLOFACIAL WITHOUT CONTRAST INDICATION / CLINICAL INFORMATION: Trauma. Patient fell sustaining head and facial injuries. Bilateral preseptal orbital ecchymoses. TECHNIQUE: All CT scans at this location are performed using CT dose reduction for ALARA by means of automated exposure control. COMPARISON: None available. FINDINGS: FACIAL BONES: No fracture or other significant abnormality. PARANASAL SINUSES: No significant abnormality. NASAL CAVITY: No abnormality ORBITS: No significant abnormality. TEMPORAL BONES: Mild thickening of the tympanic membranes versus cerumen impaction adjacent to the tympanic membranes is incidentally noted. Correlation with otoscopic evaluation is suggested. Mastoid air cells and middle ear cavities appear to be free from inflammatory disease. VISUALIZED INTRACRANIAL STRUCTURES: No significant abnormality. IMPRESSION: 1. No indication of fracture or traumatic subluxation. Signer Name: Adonis Miles MD Signed: 07/20/2019 1:33 PM Workstation Name: [id number] CT CERVICAL SPINE WITHOUT CONTRAST INDICATION / CLINICAL INFORMATION: Trauma. Patient fell sustaining head and neck injury. Neck pain. TECHNIQUE: Axial CT images were obtained through the cervical spine. Sagittal and coronal reformatted images were produced. All CT scans at this location are performed using CT dose reduction for ALARA by means of automated exposure control. COMPARISON: None available. FINDINGS: ALIGNMENT: Loss of the normal cervical lordosis is noted. No additional abnormalities of alignment are identified. There is no indication of traumatic subluxation. VERTEBRAE: No indication of fracture. DISC SPACES: Loss of disc height is noted at the C5-6 and C6-7 levels. INDIVIDUAL LEVEL ANALYSIS: C2-3: Right worse than left facet arthropathy. No additional abnormality. C3-4: No abnormality. C4-5: Anterior osteophyte formation is noted. Mild posterior disc osteophyte complex flattens the thecal sac slightly. Central spinal canal and neuroforamina are adequately maintained. C5-6: Loss of disc height is noted. Anterior and posterior osteophyte formation are observed. Right-sided uncovertebral arthropathy is present. This results in moderate right-sided C6 nerve root neural foraminal stenosis. Central spinal canal and left C6 nerve root neuroforamina are adequately maintained. C6-7: Loss of disc height and anterior osteophyte formation are demonstrated. Right worse than left uncovertebral arthritic changes are observed. Central spinal canal and neuroforamina are adequately maintained. C7-T1: No abnormality. CRANIOCERVICAL JUNCTION:No significant abnormality. SPINAL CANAL: No indication of central canal stenosis. PARASPINAL SOFT TISSUES: No significant abnormality. ADDITIONAL FINDINGS: There is moderate ossification of the nuchal ligament dorsal to the C4, C5 and C6 vertebrae. LUNG APICES: No significant abnormality of visualized lungs. IMPRESSION: 1. No indication of fracture or traumatic subluxation. 2. Widespread cervical spondylosis as described level by level above. Signer Name: Adonis Miles MD - Medical Decision Making Patient is a 79-year-old gentleman who has a history of CVA and unsteady gait who suffered a fall. Patient appears to have struck the right forehead. He states he denies loss consciousness however he is a poor historian there is a language barrier. CT of the head facial bones and cervical spine were done to rule out intracranial bleed or fracture. Fortunately number found(visit. Patient will be discharged home. Pat[facility] has a refill of his Ultracet given for his pain. Critical care attestation.: If time is entered above; I have spent that time in minutes in the direct care of this critically ill patient, excluding procedure time. ED Disposition Clinical Impression: Closed head injury Qualifiers: Encounter type: initial encounter Qualified Code(s): S09.90XA - Unspecified injury of head, initial encounter Facial contusion Qualifiers: Encounter type: initial encounter Qualified Code(s): S00.83XA - Contusion of other part of head, initial encounter Cervical strain Qualifiers: Encounter type: initial encounter Qualified Code(s): S16.1XXA - Strain of muscle, fascia and tendon at neck level, initial encounter Disposition: DC- TO HOME OR SELFCARE Is pt being admited?: No Does the pt Need Aspirin: No Condition: Stable Instructions: Minor Head Injury (ED), Cervical Radiculopathy (ED), [place] (ED) Prescriptions: Tramadol HCl/Acetaminophen [Ultracet] 37.5 - 325 each PO Q6H PRN #12 PRN Reason: Pain Time of Disposition: 14:45
[2019-07-20 14:50] VITALS: BP 170/75
== END 2019-07-20 15:09 | disposition home or self-care (01) ==
LOC: ED 12:15
DX: S16.1XXA Strain of muscle, fascia and tendon at neck level, initial encounter (principal); S00.83XA Contusion of other part of head, initial encounter; I10 Essential (primary) hypertension; Z98.890 Other specified postprocedural states; Z79.899 Other long term (current) drug therapy; Z86.73 Personal history of transient ischemic attack (TIA), and cerebral infarction without residual deficits; W18.30XA Fall on same level, unspecified, initial encounter; Y93.89 Activity, other specified; Y92.89 Other specified places as the place of occurrence of the external cause; Y99.8 Other external cause status
CPT/HCPCS: 70450; 70486; 72125